=== PATIENT | male | born 1960 | race Caucasian/White ===

== ENCOUNTER → 2021-05-25 | Outpatient (CLI) | payer OTHER ==
[~2021-05-25] MED LIST: CALCIUM 1,0001 EACH PO; CYCLOBENZAPRINE15 M1 PO; DANAZOL100 MG PO; FOLIC ACID1 MG PO; HYDROCHLOROTHIA25 M1 PO; MORPHINE SULFAT15 M3 PO; MORPHINE SULFAT15 MG PO; NORCO5 PO; RAYOS5 MG PO
== END ==
LOC: M.LAB 11:44
PROVIDERS: ATTEND Surgery
DX: Z01.812 Encounter for preprocedural laboratory examination (principal); Z20.822 Contact with and (suspected) exposure to COVID-19

== ENCOUNTER → 2021-05-26 | Day surgery (SDC) | payer OTHER ==
--- NOTE | 2021-05-22 15:47 | NUR ---
ORDERS RECEIVED FROM DR. SMITH, ANESTHESIA TO ALLOW CLEAR LIQUIDS UNTIL 9AM. INSTRUCTED PATIENT OK TO HAVE COFFEE/TEA (NO CREAMER), BROTH (NO NOODLES), JELLO, POPSICLES, APPLE JUICE, CRANBERRY JUICE OR GRAPE JUICE UNTIL 9 AM THEN NOTHING ELSE. ALSO INSTRUCTED NO SOLID FOOD AFTER MIDNIGHT. VERBALIZED UNDERSTANDING OF ALL.
--- NOTE | ~2021-05-26 | OP ---
[facility] [address] [place] [address] OPERATIVE REPORT Name: ELZA RDZ III Room: [facility] Jerri.#: [id number] Admission: 05/26/21 Attend Phys: Tito Dickinson Discharge: Date of : 62 Report #: [id number] THIS REPORT FOR: cc: Beny Duncan MD,Beny Dickinson,Tito Roca MD ~ DATE OF SURGERY: 05/26/2021 PREOPERATIVE DIAGNOSIS: Left breast mass. POSTOPERATIVE DIAGNOSIS: Left breast mass.. OPERATION: Excision of left breast mass (lumpectomy). SURGEON: Tito Dickinson MD ANESTHESIA: General. ESTIMATED BLOOD LOSS: Minimal. SPECIMEN: Left breast mass. DESCRIPTION OF PROCEDURE: After informed consent was obtained, the patient was brought to the operating room and placed supine. SCDs were placed and working, preoperative antibiotics were administered, general anesthesia was induced. The left chest and breast were prepped and draped in the usual sterile fashion. This was a mass in the left outer quadrant of the breast. This was about a 1 cm palpable mass. It was very tender and painful. I therefore made a 4 cm curved incision in the left upper outer quadrant of the breast. Cautery dissection was made down through the subcutaneous tissue. The mass was readily palpable. It was dissected around giving an approximately 1 cm margin all around the mass. The mass was then excised. The area was then copiously irrigated with normal saline. The subdermal layer was closed with interrupted 3-0 Vicryl. The skin was closed with 4-0 Monocryl. Incisions were dressed with Steri-Strips and sterile gauze. Sterile dressings were applied. COMPLICATIONS: None. DISPOSITION: The patient was taken to recovery in satisfactory condition. By: [id number] [id number] Dickinson MD /nt
[2021-05-26 12:55] LABS: HEMATOCRIT 40.9 % (42.0-52.0); HEMOGLOBIN 13.8 gm/dL (14.0-18.0); MCH 35.1 pg (26.0-34.0); MCHC 33.7 g/dL (28.0-37.0); MCV 104.2 fL (80.0-100.0); MPV 9.6 fl. (7.2-11.1); RBC 3.93 mil/uL (4.50-6.00); RDW-CV 15.1 % (10.5-14.5); WBC 3.4 thou/uL (4.0-11.0)
--- NOTE | 2021-05-26 13:02 | EKG ---
[place] [address] ELECTROCARDIOGRAM REPORT Name: ELZA RDZ III Room: [facility]#: [id number] Admission: 05/26/21 Attend Phys: Tito Roman Discharge: Date of : 62 Date of Service: 05/26/21 1242 Report #: [id number] THIS REPORT FOR: //name// [facility] Test Date: 2021-05-26 Test Time: 12:42:37 Pat Name: ELZA RDZ Department: Room: Gender: Intern Retail: : 1960 Requested By: Aquiles Downing Order Number: [id number] Raúl MD: Elza Cleaning Measurements Intervals [place] Rate: 82 P: 35 KS: 140 QRS: -15 QRSD: 90 T: 13 QT: 378 QTc: 442 Interpretive Statements Sinus rhythm Left ventricular hypertrophy suggested Baseline wander in lead(s) II,III,aVF,V5 No previous ECG available for comparison Electronically Signed On 05-26-2021 13:02:28 [employer] by Elza Cleaning [email or web address] <ELECTRONICALLY SIGNED> By: Elza Cleaning MD, [facility] 05/26/21 1302 1242 1242 Elza Cleaning MD, [facility] /EPI
[2021-05-26 13:03] LABS: CALCIUM 8.6 mg/dL (8.5-10.1); CREATININE 0.9 mg/dL (0.6-1.3); POTASSIUM 4.1 mmol/L (3.5-5.1)
--- NOTE | 2021-05-29 13:07 | PATH ---
[address] [address] PATHOLOGY RPT PROCEDURE Name: ELZA RDZ III Room: [facility].R.#: [id number] Admission: 05/26/21 Date of : 62 Discharge: Report #: [id number] Path Case #: [id number] [facility] Accession Number: [id number] . 01 Material submitted: . breast - LEFT BREAST MASS. Modifiers: left . 01 Clinical history: . [facility] EXCISION BREAST MASS . 02 Diagnosis: Left breast mass: - Benign breast tissue including mostly fat and with focal cystic apocrine change and 0.7 cm benign lymph node with prominent fatty replacement, negative for atypia. . (MARC:mml; 05/29/2021) QL 05/29/2021 1133 Local . 02 Electronically signed: . Byron Lim MD, Pathologist NPI- [id number] . 01 Gross description: . Fixative: Formalin Labeled: Left breast mass Specimen received: Unoriented yellow-mckeon soft tissue mass Dimensions: 5.2 x 4.3 x 2.5 cm Weight: 17 g The specimen is inked black. The specimen is serially sectioned into 11 slices. Lesion: A lesion is not identified. The cut surfaces are diffusely yellow-mckeon and lobulated. Biopsy clip: Not identified Uninvolved breast parenchyma: Yellow-mckeon and lobulated . Accountant Cost sections are submitted in cassettes A1-A6. ([facility]; 05/28/2021) [facility] 05/28/2021 0958 Local . 02 Pathologist provided ICD-10: N63.20 . 02 CPT . 243680 Specimen Comment: A courtesy copy of this report has been sent to [phone] Specimen Comment: [phone] Specimen Comment: Report sent to / [place] [address] PATHOLOGY RPT PROCEDURE Name: ELZA RDZ III Room: [facility]#: [id number] Admission: 05/26/21 Date of : 62 Discharge: Report #: [id number] Path Case #: [id number] Performed at: 01 [facility] [place] [address] [facility] [address], [place], [place] [id number] MD Davis Ferreira MD Phone: [phone] Performed at: 02 [facility] [address], [place], [place] [id number] MD Byron Lim MD Phone: [phone]
== END | disposition home or self-care (01) ==
LOC: M.SUR
PROVIDERS: Anesthesiology; ATTEND Surgery
DX: N60.82 Other benign mammary dysplasias of left breast (principal); R59.0 Localized enlarged lymph nodes; Z79.899 Other long term (current) drug therapy; Z88.8 Allergy status to other drugs, medicaments and biological substances